=== PATIENT | male | born 1945 | race Caucasian/White ===

== ENCOUNTER 2024-03-29 07:07 | Inpatient (IN) | payer MEDICARE, MEDICAID, SELFPAY ==
[2024-03-29] VITALS (32 sets, daily range): BP systolic 88–150; BP diastolic 68–122; PULSE 78–122; RESP 12–90; TEMP 36.8–38.3; O2SAT 88–100; BMI 33.0; BMI 25.5
--- NOTE | 2024-03-29 07:16 | XR_ITS ---
Examination: AP chest single view TECHNIQUE: AP portable sitting chest single view Exam date and time: March 29, 2024 at 0747 hours Comparison March 09, 2023 INDICATIONS: Hypoxia and shortness of breath today FINDINGS: Diffuse bilateral lung opacity consistent with pneumonia, most prominent in the left lung including left base Normal heart size Ectatic thoracic aorta Prominent osteopenia IMPRESSION: Diffuse bilateral pneumonia, most prominent left lung
--- NOTE | 2024-03-29 07:16 | EKG_ITS ---
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 : 1945 Requested By: Henrique Irene Order Number: [id number] Reading MD: Henrique Irene Measurements Intervals [place] Rate: 108 P: 46 MN: 191 QRS: 52 QRSD: 126 T: -7 QT: 346 QTc: 466 Interpretive Statements SINUS TACHYCARDIA INFERIOR MYOCARDIAL INFARCTION , OF INDETERMINATE AGE [40+ ms Q WAVE AND/OR ST/T ABNORMALITY IN II/aVF] Compared to ECG 11/11/2021 20:36:37 Myocardial infarct finding now present Atrial fibrillation no longer present Ventricular premature complex(es) no longer present Aberrant conduction of supraventricular beat(s) no longer present T-wave abnormality no longer present Possible ischemia no longer present /store/S0/[id number]/ecg/[id number].pdf
[2024-03-29 07:47] LABS: Collection Type, Urine Clean Catch
--- NOTE | 2024-03-29 07:49 | PD.EDSOB ---
ED SOB =RME/HPI General Chief Complaint: Altered Mental Status Stated Complaint: AMS Time Seen by Provider: 03/29/24 07:13 Arrival date/time: 03/29/24 07:07 RME / HPI RME / HPI Narrative: This section includes all my notes and documentations, including HPI, PE, and ED course.? Henrique Sinha MD HPI: 79 year old male with history of CVA, seizures, hypertension, spasmodic torticollis, developmental delay, hypercholesterolemia, osteoporosis presents to the ED BIBA from [facility] half-way for evaluation of altered mental status and low oxygen saturations today. Accompanied by wet cough beginning this morning. Per medics, half-way staff reported at baseline the patient is awake and conversive and this morning is not alert or responding as he normally would. Medics noted oxygen saturations were in the 70's on room and placed on 6L nasal cannula with improvement to 92-93%. Patient at baseline does not use oxygen. No other complaints reported. ROS: All negative except as documented in HPI. Physical Exam: General:? Lethargic. Fever and hypoxia noted. Eyes:? Conjunctivae and lids clear.? ENT:? No nasal congestion.? Neck:? Supple.? Heart:? RRR.? Lungs:? No respiratory distress.? Good air movement.? No rhonchi, wheezing, rales.?? Abdomen:? Soft and nontender.?? Legs:? No clubbing, cyanosis, edema.? Skin:? Warm and dry.?? Neuro:? Lethargic. I reviewed all diagnostic test results. My interpretation of the EKG is?Sinus rhythm (108 bpm) with nonspecific ST-T changes. My interpretation of the chest x-ray is diffuse bilateral pneumonia. My review of the chest CT report is bilateral pneumonia. Blood tests and urine tests?remarkable for D-Dimer 1180, elevated Troponin, CRP 6.2, BNP 473, UTI, and positive Influenza. At this point, diagnoses include?sepsis, influenza, pneumonia, acute respiratory failure with hypoxia, type 2MI, UTI. Treatment here included?IVF, Tylenol, Toradol, Solumedrol, Neb treatment, Tamiflu, and Rocephin. No significant improvement noted. I discussed the case with our cane flume watchman and our hospitalist.? About the presentation and exam and diagnostics and treatments here.? And need of further care in the hospital.? Will accept the patient. Henrique Sinha MD Related Data Home Medications ?Medication ?Instructions ?Recorded ?Confirmed acetaminophen 325 mg tablet 650 mg PO Q4H PRN Fever 09/07/17 11/07/21 benazepril 10 mg tablet 10 mg PO BID 09/07/17 11/07/21 docusate sodium 250 mg capsule 250 mg PO BID 09/07/17 11/07/21 lactulose 10 gram/15 mL (15 mL) 30 ml PO QDAY 09/07/17 11/07/21 oral solution loratadine 10 mg tablet 10 mg PO QDAY 09/07/17 11/07/21 magnesium hydroxide 400 mg/5 mL 30 ml PO QDAY 09/07/17 11/07/21 oral suspension (Milk of Magnesia) multivitamin with minerals 1 tab PO QDAY 09/07/17 11/07/21 potassium chloride 20 mEq 20 meq PO QDAY 09/07/17 11/07/21 tablet,extended release primidone 250 mg tablet 250 mg PO BID 09/07/17 11/07/21 simvastatin 10 mg tablet 10 mg PO QDAY 09/07/17 11/07/21 tamsulosin 0.4 mg capsule 0.4 mg PO DAILY 09/07/17 11/07/21 ipratropium 0.5 mg-albuterol 3 mg 3 ml inhalation Q4HR PRN Congestion 12/01/17 11/07/21 (2.5 mg base)/3 mL nebulization soln aspirin 81 mg tablet,delayed 1 tab PO DAILY 12/11/17 11/07/21 release (Aspir-) cilostazol 50 mg tablet 50 mg PO BID 12/11/17 11/07/21 clopidogrel 75 mg tablet 75 mg PO QDAY 12/11/17 11/07/21 levetiracetam 1,000 mg tablet 1,000 mg PO QDAY 12/11/17 11/07/21 calcium 600 mg (as 1 tab PO QDAY 03/14/18 11/07/21 carbonate)-vitamin D3 10 mcg (400 unit) capsule guaifenesin 400 mg tablet 400 mg PO TID 03/14/18 11/07/21 levetiracetam 500 mg tablet 1,500 mg PO QPM 03/14/18 11/07/21 eslicarbazepine 200 mg tablet 800 mg PO HS 09/09/20 11/07/21 (Aptiom) Previous Rx's ?Medication ?Instructions ?Recorded apixaban 2.5 mg tablet (Eliquis) 5 mg (2 x 2.5 mg) PO BID #120 tabs 11/15/21 metoprolol tartrate 25 mg tablet 12.5 mg (1/2 x 25 mg) PO BID #30 11/15/21 tabs Allergies Allergy/AdvReac Type Severity Reaction Status Date / Time No Known Allergies Allergy Verified 09/09/20 07:57 Course Quality Measures Current suspected stage: sepsis Possible source: pulmonary Blood cultures ordered: completed in ED Antibiotic ordered: Yes Pertinent labs: 03/29/24 03/29/24 07:40 11:04 Lactic Acid 3.6 H mMol/L 1.8 mMol/L (0.4-2.0) (0.4-2.0) Procalcitonin 0.26 ng/ml (0.0-0.49) sepsis Orders Category Date Time Status Bedside COVID-19 Antigen Test NOW Care 03/29/24 07:14 Completed Bedside Influenza A&B Antigen Test NOW Care 03/29/24 07:14 Completed COVID-19 Screening Questionnaire NOW Care 03/29/24 09:[address] Screening NOW Care 03/29/24 07:16 Completed Decision to Admit X1 Care 03/29/24 09:58 Completed EKG (ED ONLY) *Do not use* NOW Care 03/29/24 07:16 Completed Palmer to Leg Bag Routine Care 03/29/24 07:24 Ordered Nasopharyngeal Suction NEEDED Care 03/29/24 07:37 Completed Notify provider NOW Care 03/29/24 09:57 Completed Saline [Insert IV] NOW Care 03/29/24 07:14 Completed Consult to Cardiology Stat Cons 03/29/24 09:32 Ordered EKG (ED Only) Stat Exams 03/29/24 07:16 Draft XR chest 1V portable Stat Exams 03/29/24 07:16 Completed BNP [B-Type Natriuretic Peptide] Stat Lab 03/29/24 07:40 Completed Blood Culture (Lab) Stat Lab 03/29/24 07:40 Completed CBC Stat Lab 03/29/24 07:40 Completed CMP [Comprehensive Metabolic Panel] Stat Lab 03/29/24 07:40 Completed CRP [C-Reactive Protein] Stat Lab 03/29/24 07:40 Completed D-Dimer Stat Lab 03/29/24 07:40 Completed ESR [Sed Rate (ESR)] Stat Lab 03/29/24 07:40 Completed Lactate (Lactic Acid) Stat Lab 03/29/24 07:40 Completed Lactic Acid, 3 HR Stat Lab 03/29/24 11:04 Completed Magnesium Stat Lab 03/29/24 07:40 Completed PT [Prothrombin Time with INR] Stat Lab 03/29/24 09:15 Completed PTT [Partial Thromboplastin Time] Stat Lab 03/29/24 09:15 Completed Procalcitonin Stat Lab 03/29/24 07:40 Completed RSV [Respiratory Syncytial Virus Ag] Stat Lab 03/30/24 00:46 Completed TSH [Thyroid Stimulating Hormone] Stat Lab 03/29/24 07:40 Completed Troponin I Stat Lab 03/29/24 07:40 Completed UA, C/S IF [Urinalysis, C/S if Indicated] Stat Lab 03/29/24 07:25 Completed Urine Culture Stat Lab 03/29/24 07:25 Completed VBG [Venous Blood Gas] Stat Lab 03/29/24 09:15 Completed Acetaminophen Ivpb [Ofirmev Inj] Med 03/29/24 07:24 Discontinued 1,000 mg in 100 ml IV NOW Albuterol/Ipratr Rt Vicky [Duoneb Rt Vicky] Med 03/29/24 07:14 Discontinued 3 ml INH X1 ONE Aspirin Supp Med 03/29/24 08:37 Discontinued 300 mg MI X1 ONE Furosemide Inj [Lasix Inj] Med 03/29/24 07:14 Discontinued 40 mg IVP X1 ONE Heparin Inj Med 03/29/24 09:57 Discontinued 4,000 unit IV X1 ONE Heparin/D5w 25K 250 ML Ivpb [Heparin in D5w Ivpb] Med 03/29/24 10:00 Discontinued 25,000 unit in 250 ml IV 10 units/kg/hr Ketorolac Inj [Toradol Inj] Med 03/29/24 07:24 Discontinued 7.5 mg IVP X1 ONE MethylPREDNISolone.* [SoluMEDROL Inj] Med 03/29/24 07:14 Discontinued 125 mg IVP X1 ONE Morphine Inj Med 03/29/24 07:14 Discontinued 2 mg IVP X1 ONE Nitroglycerin Oint 2% [Nitro-paste Oint 2%] Med 03/29/24 07:14 Discontinued 1 inch TOP X1 ONE Oseltamivir [Tamiflu] Med 03/29/24 07:40 Discontinued 75 mg PO X1 ONE Sodium Chloride 0.9% 1000 ml [Ns] 1,000 ml Med 03/29/24 07:16 Discontinued IV 75 mls/hr cefTRIAXone [Rocephin] 1,000 mg Med 03/29/24 07:14 Discontinued Sodium Chloride 0.9% (P) [Ns 0.9% (P)] 50 ml IV X1 Vital Signs Vital signs: Vital Signs Temperature 100.9 F H 03/29/24 07:10 Pulse Rate 106 H 03/29/24 07:10 Respiratory Rate 22 H 03/29/24 07:10 Blood Pressure 104/82 03/29/24 07:10 Pulse Oximetry (%) 88 L 03/29/24 07:10 Oxygen Delivery Method Room Air 03/29/24 07:10 Shortness of Breath / Dyspnea MDM Narrative MDM Narrative:: Kavitha Acosta am scribing for and in the presence of Dr. Sinha. Patient data External records reviewed:: [facility] previous records (I reviewed admission from 11/06/2021 through 11/15/2021 for pneumonia. ), EMS form and [facility] records (I reviewed pmhx and medication list from the half-way ) Clinical information provided by:: EMS Social determinants that could affect healthcare access:: housing ([facility] resident ) Patient has the following chronic illnesses:: CVA, seizures, hypertension, spasmodic torticollis, developmental delay, hypercholesterolemia, osteoporosis How is presenting disease/condition affected by chronic disease/condition?: exacerbated by Evaluation data The following diagnostics were reviewed and interpreted by me:: lab results, radiology exam(s) and EKG tracing(s) (My interpretation of the EKG is: Sinus rhythm (108 bpm) with nonspecific ST-T changes. Henrique Sinha MD) Lab and/or radiology exams considered but not ordered:: None Interpretation Summary: CXR shows bilateral pneumonia. Medications / Prescriptions Medications or Prescriptions considered but not ordered:: None Medication administrations:: Medication Administration History Discontinued Medications Acetaminophen (Acetaminophen 325 Mg Tablet) 650 mg PO Q6H PRN PRN Reason: Fever >101.5 Stop: 04/28/24 11:48 Acetaminophen (Acetaminophen 325 Mg Tablet) 650 mg PO Q6H PRN PRN Reason: PAIN SCALE 1-3 (mild Stop: 04/28/24 11:48 Albuterol/Ipratropium (Albuterol/Ipratropium (Duoneb) Rt Vicky 3 Ml Nebu) 3 ml INH X1 ONE Stop: 03/29/24 07:15 Last Admin: 03/29/24 08:00 Dose: 3 ml Documented By: MARLENI Albuterol/Ipratropium (Albuterol/Ipratropium (Duoneb) Rt Vicky 3 Ml Nebu) 3 ml INH Q6HRRT [place] Stop: 04/28/24 12:59 Last Admin: 03/30/24 20:05 Dose: Not Given Documented By: CHARLIE Non-Admin Reason: pt Admin: 03/30/24 07:19 Dose: 3 ml Documented By: Admin: 03/30/24 00:03 Dose: 3 ml Documented By: Admin: 03/29/24 18:40 Dose: 3 ml Documented By: Admin: 03/29/24 12:35 Dose: 3 ml Documented By: MARLENI Artificial Tears (Artificial Tears 225 Drop/15 Ml Btl) 1 drop BOTH EYES Q4HR PRN PRN Reason: Dry eyes Stop: 04/29/24 04:15 Aspirin (Aspirin 300 Mg Supp) 300 mg MI X1 ONE Stop: 03/29/24 08:38 Last Admin: 03/29/24 12:20 Dose: 300 mg Documented By: KATE Atorvastatin Calcium (Atorvastatin Calcium 10 Mg Tablet) 5 mg PO QDAY [place]; Protocol Stop: 04/29/24 08:59 Benzonatate (Benzonatate 100 Mg Capsule) 100 mg PO Q8H PRN; Protocol PRN Reason: COUGH Stop: 04/28/24 14:59 Dextrose (Dextrose 50%-Water Inj 50 Ml Syringe) 25 ml IV Q15MIN PRN PRN Reason: BG 50-70 responsive npo pt Stop: 04/28/24 14:47 Dextrose (Dextrose 50%-Water Inj 50 Ml Syringe) 50 ml IV Q15MIN PRN PRN Reason: BG <50 OR BG <70 & pt unresponsive Stop: 04/28/24 14:47 Docusate Sodium (Docusate Sod 100 Mg Capsule) 100 mg PO QDAY [facility]; Protocol Stop: 04/29/24 08:59 Furosemide (Furosemide Inj 10 Mg/Ml 4ml Vial) 40 mg IVP X1 ONE Stop: 03/29/24 07:15 Last Admin: 03/29/24 08:04 Dose: 40 mg Documented By: KATE Furosemide (Furosemide Inj 10 Mg/Ml 4ml Vial) 40 mg IVP X1 ONE Stop: 03/30/24 03:05 Last Admin: 03/30/24 03:41 Dose: 40 mg Documented By: LESLEE Glucagon (Glucagon Inj 1 Mg Vial) 1 mg IM Q15MIN PRN PRN Reason: BG <70, and no IV access Guaifenesin (Guaifenesin Syrup 200 Mg/10 Ml Udc) 400 mg PO TID [place] Stop: 04/28/24 21:59 Last Admin: 03/29/24 23:18 Dose: Not Given Documented By: RAJESH Non-Admin Reason: NPO Heparin Sodium (Porcine) (Heparin Sod Inj 5000 Unit/Ml Vial) 4,000 unit IV X1 ONE; Protocol Stop: 03/29/24 09:58 Last Admin: 03/29/24 12:52 Dose: 4,000 unit Documented By: KATE Co-signed By: MARISOL Ceftriaxone Sodium 1,000 mg/ (Sodium Chloride) 50 mls @ 100 mls/hr IV X1 ONE Stop: 03/29/24 07:43 Last Infusion: 03/29/24 08:55 Dose: Infused Documented By: Admin: 03/29/24 08:20 Dose: 100 mls/hr Documented By: KATE Sodium Chloride (Ns) 1,000 mls @ 75 mls/hr IV .[id number] ONE Stop: 03/29/24 20:35 Last Infusion: 03/29/24 23:18 Dose: Infused Documented By: Admin: 03/29/24 08:20 Dose: 75 mls/hr Documented By: KATE Acetaminophen (Ofirmev Inj) 1,000 mg in 100 mls @ 250 mls/hr IV NOW ONE Stop: 03/29/24 07:47 Last Admin: 03/29/24 07:30 Dose: Not Given Documented By: KATE Non-Admin Reason: Medication Not Available Heparin Sodium/Dextrose (Heparin In D5w Ivpb) 25,000 unit in 250 mls @ 10.433 mls/hr IV .[id number] [facility]; Protocol Stop: 04/12/24 09:59 Last Admin: 03/29/24 13:02 Dose: Not Given Documented By: KATE Non-Admin Reason: Duplicate Medication on eMAR Ceftriaxone Sodium/Dextrose (Rocephin/D5w 1gm Iv Premix) 50 mls @ 100 mls/hr IV 2100 [place] Stop: 04/05/24 20:59 Last Admin: 03/29/24 22:05 Dose: 100 mls/hr Documented By: RAJESH Azithromycin 500 mg/ Sodium (Chloride) 250 mls @ 250 mls/hr IV QDAY [facility] Stop: 04/05/24 11:52 Last Infusion: 03/29/24 13:30 Dose: Infused Documented By: Admin: 03/29/24 12:19 Dose: 250 mls/hr Documented By: KATE Heparin Sodium/Dextrose (Heparin In D5w Ivpb) 25,000 unit in 250 mls @ 10 mls/hr IV .Q24H [facility]; Protocol Stop: 04/12/24 09:59 Last Titration: 03/30/24 03:45 Dose: 7.07 units/kg/hr, 6.382 mls/hr Documented By: LESLEE Co-signed By: YAQUELIN Titration: 03/29/24 19:40 Dose: 9.07 units/kg/hr, 8.187 mls/hr Documented By: RAJESH Co-signed By: ANMOL Admin: 03/29/24 12:54 Dose: 11.078 units/kg/hr, 10 mls/hr Documented By: KATE Co-signed By: MARISOL Morphine Sulfate (Morphine Sulfate Iv Drip 100mg/100ml) 100 mls @ 1 mls/hr IV .Q24H PRN; Protocol PRN Reason: PAIN (COMFORT CARE) Stop: 04/04/24 04:15 Last Admin: 03/30/24 04:40 Dose: 1 mg/hr, 1 mls/hr Documented By: LESLEE Co-signed By: Insulin Human Lispro (Insulin Lispro (Admelog) 1 Unit/0.01 Ml Unit) 0 unit SC AC [facility]; Protocol Stop: 04/28/24 16:59 Last Admin: 03/29/24 17:50 Dose: Not Given Documented By: KATE Non-Admin Reason: Per Protocol Ketorolac Tromethamine (Ketorolac Inj 30 Mg/Ml Vial) 7.5 mg IVP X1 ONE Stop: 03/29/24 07:25 Last Admin: 03/29/24 08:10 Dose: 7.5 mg Documented By: KATE Levalbuterol HCl (Levalbuterol Rt 1.25 Mg/0.5 Ml Nebu) 1.25 mg INH X1 ONE Stop: 03/30/24 02:39 Levetiracetam (Levetiracetam 250 Mg Tablet) 1,500 mg PO QPM [place] Stop: 04/28/24 20:59 Last Admin: 03/29/24 22:24 Dose: Not Given Documented By: RAJESH Non-Admin Reason: Other, see note Comments: does not pass swallow exam Lorazepam (Lorazepam 2 Mg/Ml Vial) 1 mg IVP Q2HR PRN PRN Reason: Agitation Stop: 04/04/24 05:59 Last Admin: 03/30/24 04:34 Dose: 1 mg Documented By: LESLEE Methylprednisolone Sodium Succinate (Methylprednisolone Sod Succ 62.5 Mg/Ml 2ml Vial) 125 mg IVP X1 ONE Stop: 03/29/24 07:15 Last Admin: 03/29/24 08:08 Dose: 125 mg Documented By: KATE Methylprednisolone Sodium Succinate (Methylprednisolone Sod Succ 40 Mg Vial) 40 mg IVP X1 ONE Stop: 03/30/24 03:05 Last Admin: 03/30/24 03:45 Dose: 40 mg Documented By: LESLEE Morphine Sulfate (Morphine Sulf Inj 10 Mg/Ml Vial) 2 mg IVP X1 ONE Stop: 03/29/24 07:15 Last Admin: 03/29/24 08:11 Dose: 2 mg Documented By: KATE Morphine Sulfate (Morphine Sulf Inj 10 Mg/Ml Vial) 2 mg IVP Q2HR [place] Stop: 04/04/24 15:59 Morphine Sulfate (Morphine Sulf Inj 10 Mg/Ml Vial) 2 mg IVP Q30MIN PRN PRN Reason: AGITATION OR PAIN Stop: 04/04/24 14:40 Last Admin: 03/30/24 15:52 Dose: 2 mg Documented By: Admin: 03/30/24 14:53 Dose: 2 mg Documented By: ANGELA Nitroglycerin (Nitroglycerin Oint 2% 1 Inch Packet) 1 inch TOP X1 ONE Stop: 03/29/24 07:15 Last Admin: 03/29/24 08:13 Dose: 1 inch Documented By: KATE Ondansetron HCl (Ondansetron Inj 2 Mg/Ml Inj 2 Ml) 4 mg IV Q6H PRN; Protocol PRN Reason: NAUSEA OR VOMITING Stop: 04/28/24 11:48 Oseltamivir Phosphate (Oseltamivir 75 Mg Capsule) 75 mg PO X1 ONE Stop: 03/29/24 07:41 Last Admin: 03/29/24 12:17 Dose: 75 mg Documented By: KATE Oseltamivir Phosphate (Oseltamivir 75 Mg Capsule) 75 mg PO QDAY [place] Stop: 04/03/24 08:59 Pantoprazole Sodium (Pantoprazole Inj 40 Mg Vial) 40 mg IVP QDAY [place] Stop: 04/29/24 08:59 Primidone (Primidone 50 Mg Tablet) 250 mg PO BID [place] Stop: 04/28/24 20:59 Last Admin: 03/29/24 22:24 Dose: Not Given Documented By: RAJESH Non-Admin Reason: Other, see note Comments: does not pass swallow exam Scopolamine (Scopolamine 1 Mg Tdsy) 1 mg TOP Q3D [place] Stop: 04/29/24 04:29 Last Admin: 03/30/24 15:16 Dose: 1 mg Documented By: JAZZY Sennosides (Senna Tablet) 1 tab PO QDAY [place]; Protocol Stop: 04/29/24 08:59 Sennosides (Senna Tablet) 1 tab PO PRN PRN; Protocol PRN Reason: CONSTIPATION Stop: 04/29/24 04:17 Sodium Chloride (Sodium Chloride Rt Vicky 0.9% 3 Ml Nebu) 3 ml INH PRN PRN PRN Reason: SOLN Stop: 04/29/24 02:37 Tamsulosin HCl (Tamsulosin Hcl 0.4 Mg Capsule) 0.4 mg PO DAILY [facility] Stop: 04/29/24 08:59 Patient given IV fluids, ceftriaxone, nitro, morphine, solumedrol, lasix, duoneb. Consultations Consultation(s) initiated? (list below): Yes Consultation #1 (Physician, Specialty, Details): I spoke with Surgical Resident, will consult. Diagnosis Shortness of Breath Differential Diagnosis: acute exacerbation of chronic obstructive airways disease, congestive heart failure, community acquired pneumonia, asthma with exacerbation and pulmonary embolism Most likely diagnosis given after review of the tests above:: sepsis influenza pneumonia acute respiratory failure with hypoxia type 2MI UTI Admission Indicated Admission indicated?: indicated Explain why admission is indicated or not indicated:: Sepsis and respiratory failure Admission Request Was there a request for admission?: Yes Admission Attestation Admission request attestation: Discussed case with Hospitalist service regarding admission. Discussed patients ED course, exam findings, labs, and radiology results. The Hospitalist [agrees] to accept the patient for admission. Disposition Plan Disposition Plan: Admit Discharge Plan Plan Patient Disposition: Admit Acute Care w/in Hospital Disposition Comment: Problem List Clinical Impression: Sepsis, Influenza, Pneumonia, Acute respiratory failure with hypoxia, Type 2 LA (myocardial infarction), UTI (urinary tract infection) Patient/Caregiver Discharge Instructions Discharge Activity: other
[2024-03-29 07:52] LABS: Lactate (Lactic Acid) 3.6 mMol/L (0.4-2.0)
[2024-03-29] MEDS: ALBUTEROL/IPRATROPIUM (Duoneb) RT SOL 3 ML NEBU INH ×3 (08:00→18:40)
[2024-03-29] MEDS: FUROSEMIDE INJ 10 MG/ML 4ML VIAL 40 MG IVP (08:04)
[2024-03-29 08:05] LABS: Basophils % (Auto) 0 % (0-2.5); Eosinophils % (Auto) 0 % (0-10); Hematocrit 38.7 % (41.0-53.0); Hemoglobin 12.8 g/dL (13.5-16.0); Immature Granulocytes % (Auto) 1 % (0-0); Immature Granulocytes Auto 0.04 Thou/mm3 (0.00-0.00); Lymphocytes # (Auto) 0.4 Thou/mm3 (1.0-4.8); Lymphocytes % (Auto) 5 % (10-50); Mean Corpuscular HGB Conc 33.1 g/dl (31.0-37.0); Mean Corpuscular Volume 91 fL (80-100); Monocytes # (Auto) 1.1 Thou/mm3 (0.0-0.8); Monocytes % (Auto) 15 % (0-12); Neutrophils % (Auto) 79 % (37-80); Nucleated Red Blood Cell % 0 /100 WBC (0); Platelet Count 226 Thou/mm3 (140-440); RDW Standard Deviation 43.5 fL (35.1-43.9); Red Blood Count 4.26 Miln/mm3 (4.50-5.90); White Blood Count 7.6 Thou/mm3 (3.8-10.6)
[2024-03-29] MEDS: MethylPREDNISolone SOD SUCC 62.5 MG/ML 2ML VIAL 125 MG IVP (08:08)
[2024-03-29] MEDS: KETOROLAC INJ 30 MG/ML VIAL 7.5 MG IVP (08:10)
[2024-03-29] MEDS: MORPHINE SULF INJ 10 MG/ML VIAL 2 MG IVP (08:11)
[2024-03-29] MEDS: NITROGLYCERIN OINT 2% 1 INCH PACKET TOP (08:13)
[2024-03-29 08:14] LABS: Sed Rate (ESR) 58 mm/hr (0-20)
[2024-03-29] MEDS: SODIUM CHLORIDE 0.9% 1000 ML 1,000 ML 75 ML IV (08:20)
[2024-03-29] MEDS: cefTRIAXone 1,000 MG in SODIUM CHLORIDE 0.9% (P) 50 ML 100 MG IV (08:20)
[2024-03-29 08:21] LABS: D-Dimer 1180 ng/mL (<600)
[2024-03-29 08:25] LABS: Alanine Aminotransferase 46 U/L (10-49); Albumin, Serum 4.2 gm/dL (3.4-4.8); Albumin/Globulin Ratio 1.2 (1.2-2.2); Alkaline Phosphatase 130 U/L (46-116); Anion Gap 11 (7-16); Aspartate Amino Transferase 112 U/L (0-34); BUN/Creatinine Ratio 21 Ratio (12-20); Bilirubin,Total 0.2 mg/dL (0.3-1.2); Blood Urea Nitrogen 17 mg/dL (9-23); C-Reactive Protein 6.2 mg/dL (0.0-0.9); Calcium 9.7 mg/dL (8.3-10.6); Calcium (Corrected) 9.7 mg/dL (8.5-10.1); Carbon Dioxide 24.6 mMol/L (20.0-31.0); Chloride 98 mMol/L (98-107); Creatinine (Component) 0.8 mg/dL (0.6-1.3); Estimated Creatinine Clearance 87.6 mL/min (>60); Globulin 3.4 gm/dL (2.3-3.5); Glucose 150 mg/dL (74-106); Magnesium 1.9 mg/dL (1.6-2.6); Osmolality,Calculated 272 (275-295); Potassium 4.4 mMol/L (3.4-5.1); Procalcitonin 0.26 ng/ml (0.0-0.49); Sodium 134 mMol/L (136-145); Thyroid Stimulating Hormone 1.51 uIU/mL (0.55-4.78); Total Protein 7.6 gm/dL (5.7-8.2); eGFR > 60 See Note
[2024-03-29 08:27] LABS: Bacteria,Urine Rare; Bilirubin,Urine Negative (Negative); Blood,Urine 1+ (Negative); Color,Urine Yellow (Lt Yel-Yel); Glucose, Urine Negative (Negative); Hyaline Casts,Urine < 1 /hpf (0-1); Ketones,Urine Trace (Negative); Leukocyte Esterase,Urine Positive (Negative); Nitrite,Urine Negative (Negative); Protein,Urine 1+ (Neg - Trace); RBC,Urine 25 /hpf (0-3); Specific Gravity,Urine 1.019 (1.001-1.035); Squamous Epithelial Cell,Urine 4 /hpf (0-5); Urobilinogen,Urine Negative mg/dL (0.0-1.0); WBC,Urine 1786 /hpf (0-5)
[2024-03-29 08:34] LABS: Troponin I 11.531 ng/mL (0.0-0.045)
[2024-03-29 08:50] LABS: B-Type Natriuretic Peptide 473 pg/mL (0-100)
[2024-03-29 09:00] LABS: Clarity,Urine Cloudy (Clear/Hazy); Culture Indicated,Urine Yes
[2024-03-29 09:21] LABS: Base Excess, Venous 1 (-3-3); O2 Saturation, Venous 97 % (96-97); PCO2, Venous 41 mmHg (36-56); PO2, Venous 85 mmHg (15-58)
[2024-03-29 09:50] LABS: INR 1.1 (0.9-1.3); Partial Thromboplastin Time 29.3 Seconds (22.0-36.0); Prothrombin Time 11.8 Seconds (9.0-12.2)
[2024-03-29 10:50] LABS: Reflex Lactate? Y
[2024-03-29 11:10] LABS: Lactic Acid, 3 HR 1.8 mMol/L (0.4-2.0)
[2024-03-29] MEDS: OSELTAMIVIR 75 MG CAPSULE PO (12:17)
[2024-03-29] MEDS: AZITHROMYCIN INJ 500 MG in SODIUM CHLORIDE 0.9% 250 ML 250 ML 250 MG IV (12:19)
[2024-03-29] MEDS: ASPIRIN 300 MG SUPP PR (12:20)
[2024-03-29] MEDS: HEPARIN SOD INJ 5000 UNIT/ML VIAL 4000 UNIT IV (12:52)
[2024-03-29] MEDS: Heparin/D5w 25K 250 ML Ivpb 25,000 UNIT/250 ML BAG 10 UNIT IV (12:54)
[2024-03-29 13:36] LABS: Troponin I 21.615 ng/mL (0.0-0.045)
--- NOTE | 2024-03-29 14:42 | XR_ITS ---
Examination: CTA chest with intravenous contrast 2-D reconstructions 3-D reconstructions, vascular Date and time of exam: March 29, 2024 1717 hours INDICATIONS: Onset chest pain shortness of breath today, elevated d-dimer, clinical diagnosis pulmonary embolus CTDI: vol (mGy) 15.9 DLP: (mGycm) 610 Technique: Multiple axial sections of the thorax have been obtained. 3 mm slice thickness, from below the hemidiaphragms to above the apices of the lungs. Mediastinal and lung density settings have been obtained. 2-D sagittal and coronal reconstructions. 3-D angiographic renderings, 3-D volume renderings, 3D post processing, vascular maximum intensity projections obtained. Contrast administered is 100 cc Isovue-370 intravenous. Low dose protocols were performed. One or more of the following dose reduction techniques were used; automated exposure control, adjustment of the mA and/or KV according to patient size, use of iterative reconstruction technique. Findings: Mediolateral dimension ascending thoracic aorta 4.6 cm Pulmonary artery segments do not appear enlarged No pulmonary artery emboli Mild to moderate enlargement cardiac contour with heavy calcification left main and left anterior descending and left circumflex and right coronary arteries Bilateral diffuse lung opacity consistent with pneumonia, prominent at the left lung base Prominent vascular congestion No visualized liver or splenic lesion Multiple gallstones Moderate osteopenia IMPRESSION: Aneurysmal dilatation ascending thoracic aorta, mediolateral dimension 4.6 cm Negative for pulmonary artery emboli. Bilateral pneumonia, significant left base Mild associated heart failure Cholelithiasis, recommend hepatobiliary sonography to assess the gallbladder wall
--- NOTE | 2024-03-29 14:44 | PD.RESHP ---
Documentation for date of: 03/29/24 HPI History of Present Illness Chief complaint: Fever and malaise History of present illness: Mr. Diane is an 79-year-old male with past medical history of CVA, neck contracture, developmental disability, recurrent UTI, schizophrenia, seizures, hypertension, hyperlipidemia and bedbound who presented to [facility] with a chief complaint of fever and malaise. Patient was at baseline health yesterday evening and this morning when caretakers went to awaken him he was not responding very well and was noted to be weak so they decided to bring him to the emergency department. Patient's roommate has been febrile for the last few days and this patient has been without complaints until this morning. She denied any febrile episodes at home, seizures, complaints of chest pain, complaints of abdominal pain, dysuria, diarrhea, or vomiting. At baseline patient is verbal with repetitive stories and is able to answer yes and no questions. When questioned about any chest pain patient denied any chest pain. PMH: CVA, neck contracture, developmental delay, schizophrenia, seizures, hypertension, hyperlipidemia and bedbound Past surgical history: Unknown Allergies: Unknown Social history: Patient is conserved under the care of [facility], unknown substance abuse history ED vitals: BP 88/68, pulse 106, RR 22, temp febrile, O2 sat 98 on 2 L via nasal cannula ED labs: WBC 7.6, hemoglobin 12.8, ESR 58, D-dimer 1180, sodium 134 glucose 150, AST 112, ALT 46, alk phos 130, initial cardiac troponins 11 with repeat of 21 C-reactive protein 6.2, BNP 473 U/A: Cloudy, 1+ protein, 1+ blood, 25 RBCs, 1786 WBC, Chest x-ray reveals diffuse bilateral pneumonia most prominent in the left lung EKG shows sinus tachycardia with Q waves ED management: DuoNebs, Lasix 40 x 1, Solu-Medrol 125 mg x 1, Toradol 7.5 mg x 1, morphine 2 mg IV push x 1, nitroglycerin topical x 1 Rocephin 1 g x 1, Tamiflu 75 mg p.o. x 1, initiated on heparin drip Cardiology consulted Review of Systems Review of Systems Systems Reviewed: All systems reviewed, normal except as documented Exam Vital Signs Temp Pulse Resp BP Pulse Ox O2 Del Method O2 Flow Rate 98.2 F 93 18 88/68 L 98 Nasal Cannula 2 03/29/24 13:03 03/29/24 13:30 03/29/24 13:03 03/29/24 13:30 03/29/24 13:30 03/29/24 13:03 03/29/24 13:03 Narrative Exam Constitutional: NAD, alert, bedridden, with a neck contracture HEENT:? Normocephalic/Atraumatic, PERRL , no conjunctival injection , symmetrical lids, neck contracture a left-sided deviation CVS: RRR, S1 and S2 present, no murmurs, rubs or gallops . RESP: Bilateral rhonchi heard upon auscultation with significant mucus GI: Normal BS, Nontender/Nondistended. MSK: Full range of motion, No trauma or deformities or masses.? Skin: Warm to touch, Dry. No rashes or lesions. No hematomas Neuro: service trainer II-XII grossly intact. Sensation grossly intact. Psych: (AAO) x3 . Appropriate mood and affect. Results: Labs 03/29/24 07:40 03/29/24 07:40 Labs: Short CBC 03/29/24 Range/Units 07:40 WBC 7.6 (3.8-10.6) Thou/mm3 Hgb 12.8 L (13.5-16.0) g/dL Hct 38.7 L (41.0-53.0) % Plt Count 226 (140-440) Thou/mm3 BMP 03/29/24 07:40 Sodium 134 L Potassium 4.4 Chloride 98 Carbon Dioxide 24.6 BUN 17 Creatinine 0.8 Glucose 150 H Calcium 9.7 Cardiac Enzymes 03/29/24 03/29/24 Range/Units 07:40 12:38 Troponin I 11.531 H* 21.615 H* D (0.0-0.045) ng/mL Liver Function 03/29/24 Range/Units 07:40 Total Bilirubin 0.2 L (0.3-1.2) mg/dL AST 112 H (0-34) U/L ALT 46 (10-49) U/L Alkaline Phosphatase 130 H (46-116) U/L Albumin 4.2 (3.4-4.8) gm/dL Urine 03/29/24 Range/Units 07:25 Urine Color Yellow (Lt Yel-Yel) Urine Clarity Cloudy A (Clear/Hazy) Urine pH 6.0 (5.0-7.0) Ur Specific [place] 1.019 (1.001-1.035) Urine Protein 1+ A (Neg - Trace) Urine Glucose (UA) Negative (Negative) ABG Interpretation ABG results: 03/29/24 09:15 VBG pH 7.40 VBG pCO2 41 VBG pO2 85 H VBG Base Excess 1 Quality Measures Quality Measures sepsis Current suspected stage: sepsis Possible source: pulmonary Blood cultures ordered: completed in ED Antibiotic ordered: Yes Advance care planning discussed with:: legal surragate Medications Home Medications and Allergies Home Medications ?Medication ?Instructions ?Recorded ?Confirmed ?Type acetaminophen 325 mg tablet 650 mg PO Q4H PRN Fever 09/07/17 11/07/21 History benazepril 10 mg tablet 10 mg PO BID 09/07/17 11/07/21 History docusate sodium 250 mg capsule 250 mg PO BID 09/07/17 11/07/21 History lactulose 10 gram/15 mL (15 mL) 30 ml PO QDAY 09/07/17 11/07/21 History oral solution loratadine 10 mg tablet 10 mg PO QDAY 09/07/17 11/07/21 History magnesium hydroxide 400 mg/5 mL 30 ml PO QDAY 09/07/17 11/07/21 History oral suspension (Milk of Magnesia) multivitamin with minerals 1 tab PO QDAY 09/07/17 11/07/21 History potassium chloride 20 mEq 20 meq PO QDAY 09/07/17 11/07/21 History tablet,extended release primidone 250 mg tablet 250 mg PO BID 09/07/17 11/07/21 History simvastatin 10 mg tablet 10 mg PO QDAY 09/07/17 11/07/21 History tamsulosin 0.4 mg capsule 0.4 mg PO DAILY 09/07/17 11/07/21 History ipratropium 0.5 mg-albuterol 3 mg 3 ml inhalation Q4HR PRN Congestion 12/01/17 11/07/21 History (2.5 mg base)/3 mL nebulization soln aspirin 81 mg tablet,delayed 1 tab PO DAILY 12/11/17 11/07/21 History release (Aspir-) cilostazol 50 mg tablet 50 mg PO BID 12/11/17 11/07/21 History clopidogrel 75 mg tablet 75 mg PO QDAY 12/11/17 11/07/21 History levetiracetam 1,000 mg tablet 1,000 mg PO QDAY 12/11/17 11/07/21 History calcium 600 mg (as 1 tab PO QDAY 03/14/18 11/07/21 History carbonate)-vitamin D3 10 mcg (400 unit) capsule guaifenesin 400 mg tablet 400 mg PO TID 03/14/18 11/07/21 History levetiracetam 500 mg tablet 1,500 mg PO QPM 03/14/18 11/07/21 History eslicarbazepine 200 mg tablet 800 mg PO HS 09/09/20 11/07/21 History (Aptiom) Allergies Allergy/AdvReac Type Severity Reaction Status Date / Time No Known Allergies Allergy Verified 09/09/20 07:57 Visit Medications Acetaminophen (Acetaminophen 325 Mg Tablet) 650 mg PO Q6H PRN PRN Reason: Fever >101.5 Stop: 04/28/24 11:48 Acetaminophen (Acetaminophen 325 Mg Tablet) 650 mg PO Q6H PRN PRN Reason: PAIN SCALE 1-3 (mild Stop: 04/28/24 11:48 Albuterol/Ipratropium (Albuterol/Ipratropium (Duoneb) Rt Vicky 3 Ml Nebu) 3 ml INH Q6HRRT [facility] Stop: 04/28/24 12:59 Last Admin: 03/29/24 12:35 Dose: 3 ml Docusate Sodium (Docusate Sod 100 Mg Capsule) 100 mg PO QDAY [facility]; Protocol Stop: 04/29/24 08:59 Sodium Chloride (Ns) 1,000 mls @ 75 mls/hr IV .[id number] ONE Stop: 03/29/24 20:35 Last Admin: 03/29/24 08:20 Dose: 75 mls/hr Ceftriaxone Sodium/Dextrose (Rocephin/D5w 1gm Iv Premix) 50 mls @ 100 mls/hr IV 2100 [place] Stop: 04/05/24 20:59 Azithromycin 500 mg/ Sodium (Chloride) 250 mls @ 250 mls/hr IV QDAY [place] Stop: 04/05/24 11:52 Last Infusion: 03/29/24 13:30 Dose: Infused Heparin Sodium/Dextrose (Heparin In D5w Ivpb) 25,000 unit in 250 mls @ 10 mls/hr IV .Q24H [place]; Protocol Stop: 04/12/24 09:59 Last Admin: 03/29/24 12:54 Dose: 11.078 units/kg/hr, 10 mls/hr Ondansetron HCl (Ondansetron Inj 2 Mg/Ml Inj 2 Ml) 4 mg IV Q6H PRN; Protocol PRN Reason: NAUSEA OR VOMITING Stop: 04/28/24 11:48 Oseltamivir Phosphate (Oseltamivir 75 Mg Capsule) 75 mg PO QDAY [facility] Stop: 04/03/24 08:59 Pantoprazole Sodium (Pantoprazole Inj 40 Mg Vial) 40 mg IVP QDAY [facility] Stop: 04/29/24 08:59 Sennosides (Senna Tablet) 1 tab PO QDAY [facility]; Protocol Stop: 04/29/24 08:59 Discontinued Medications Albuterol/Ipratropium (Albuterol/Ipratropium (Duoneb) Rt Vicky 3 Ml Nebu) 3 ml INH X1 ONE Stop: 03/29/24 07:15 Last Admin: 03/29/24 08:00 Dose: 3 ml Aspirin (Aspirin 300 Mg Supp) 300 mg SD X1 ONE Stop: 03/29/24 08:38 Last Admin: 03/29/24 12:20 Dose: 300 mg Furosemide (Furosemide Inj 10 Mg/Ml 4ml Vial) 40 mg IVP X1 ONE Stop: 03/29/24 07:15 Last Admin: 03/29/24 08:04 Dose: 40 mg Heparin Sodium (Porcine) (Heparin Sod Inj 5000 Unit/Ml Vial) 4,000 unit IV X1 ONE; Protocol Stop: 03/29/24 09:58 Last Admin: 03/29/24 12:52 Dose: 4,000 unit Ceftriaxone Sodium 1,000 mg/ (Sodium Chloride) 50 mls @ 100 mls/hr IV X1 ONE Stop: 03/29/24 07:43 Last Infusion: 03/29/24 08:55 Dose: Infused Acetaminophen (Ofirmev Inj) 1,000 mg in 100 mls @ 250 mls/hr IV NOW ONE Stop: 03/29/24 07:47 Last Admin: 03/29/24 07:30 Dose: Not Given Heparin Sodium/Dextrose (Heparin In D5w Ivpb) 25,000 unit in 250 mls @ 10.433 mls/hr IV .[id number] [facility]; Protocol Stop: 04/12/24 09:59 Last Admin: 03/29/24 13:02 Dose: Not Given Ketorolac Tromethamine (Ketorolac Inj 30 Mg/Ml Vial) 7.5 mg IVP X1 ONE Stop: 03/29/24 07:25 Last Admin: 03/29/24 08:10 Dose: 7.5 mg Methylprednisolone Sodium Succinate (Methylprednisolone Sod Succ 62.5 Mg/Ml 2ml Vial) 125 mg IVP X1 ONE Stop: 03/29/24 07:15 Last Admin: 03/29/24 08:08 Dose: 125 mg Morphine Sulfate (Morphine Sulf Inj 10 Mg/Ml Vial) 2 mg IVP X1 ONE Stop: 03/29/24 07:15 Last Admin: 03/29/24 08:11 Dose: 2 mg Nitroglycerin (Nitroglycerin Oint 2% 1 Inch Packet) 1 inch TOP X1 ONE Stop: 03/29/24 07:15 Last Admin: 03/29/24 08:13 Dose: 1 inch Oseltamivir Phosphate (Oseltamivir 75 Mg Capsule) 75 mg PO X1 ONE Stop: 03/29/24 07:41 Last Admin: 03/29/24 12:17 Dose: 75 mg Assessment & Plan Plan Mr. Diane is an 79-year-old male with past medical history of CVA, neck contracture, developmental disability, recurrent UTI, schizophrenia, seizures, hypertension, hyperlipidemia and bedbound who presented to [facility] with a chief complaint of fever and malaise. Patient was at baseline health yesterday evening and this morning when caretakers went to awaken him he was not responding very well and was noted to be weak so they decided to bring him to the emergency department. Patient's roommate has been febrile for the last few days and this patient has been without complaints until this morning. She denied any febrile episodes at home, seizures, complaints of chest pain, complaints of abdominal pain, dysuria, diarrhea, or vomiting. At baseline patient is verbal with repetitive stories and is able to answer yes and no questions. When questioned about any chest pain patient denied any chest pain. #Sepsis secondary to community-acquired pneumonia and UTI #Influenza A #Acute hypoxic respiratory failure secondary to community-acquired pneumonia Patient noted to have tachycardia, fever, hypotension with a source of bilateral pneumonia Tylenol for fever and Zofran for nausea IV Rocephin 1 g daily and azithromycin 500 daily for community-acquired pneumonia and urinary tract infection Continue patient's Flomax Continue with Tamiflu 75 mg p.o. daily for 5 days Lactic acid remains normal Chest physiotherapy ordered, guaifenesin for cough, Kadeem Simon Recommended removal of nitroglycerin patch to improve patient's hypotension #Type II NSTEMI #Elevated troponins #CHF exacerbation Initial troponins around 11 with follow-up at 21 Continue to trend until patient begins to downtrend EKG reveals pathologic Q waves but currently patient is asymptomatic from chest pain Cardiology following, appreciate recommendations Currently patient is receiving heparin drip Elevated BNP of 473 Continue simvastatin 10 mg p.o. daily Furosemide 40 mg IV push x 1 Aspirin 300 mg x 1 #History of seizures Keppra 1500 mg twice daily Primidone 250 mg p.o. twice daily Seizure precautions #BPH Tamsulosin 0.4 mg p.o. daily continue Palmer's catheter in place #History of A-fib #History of CVA Metoprolol tartrate 12.5 mg twice daily Eliquis 5 mg p.o. twice daily Currently patient is on heparin drip and hypotensive, will resume once appropriate Resume aspirin 81 mg p.o. daily and clopidogrel 75 mg p.o. daily #History of hypertension Benazepril 10 mg p.o. twice daily Hold in the setting of hypotension. #Developmental disability #Neck contracture ?Patient is bedridden ?Fall risk precautions Health Maintenance: DVT prophylaxis: Heparin drip GI prophylaxis: Protonix 40 IV daily Diet: Cardiac diet dysphagia type II with 1500 fluid restriction Palmer: Ordered Lines: Peripheral IVs Supplemental O2: None CODE STATUS: Full code, Patient is conserved. Follow-up with Dr. Tijerina in the event of life-saving emergency or interventions Disposition: Admitted to med/tele for the management of acute hypoxic respiratory failure secondary to community-acquired pneumonia and flu versus sepsis secondary to urinary tract infection, type II demand ischemia Plan of care discussed with supervising attending Dr. Ashish Bowie M.D. PGY-3 Attending Provider Attestation/Addendum Alejandrina Acosta DO, attest that I was physically present for the chowdhury portions of the service and evaluated the patient with the resident and I reviewed and discussed the case with the resident and agree with the resident's findings and plans of care as documented above Patient is an 79-year-old male with past medical history of developmental delay, torticollis, recurrent UTI, schizophrenia, seizures, hypertension, hyperlipidemia who was brought to ED from detention for fever and generalized weakness. Patient was noted to be less responsive this morning and was subsequently brought to ED. Patient noted to have scattered rhonchi and thick purulent sputum requiring frequent suctioning. Patient is unable to provide history. However, he denies any chest pain, shortness of breath, abdominal pain. Patient was noted to have a Tmax of 100.9 and tachycardia Upon presentation to ED. Chest x-ray shows diffuse bilateral pneumonia more prominent on left lung. Patient's history is pertinent for recent sick contacts. Labs were significant for troponin of 11.531 and BNP of 473, UA was significant for pyuria with 1786 white blood cell. Cardio called regarding elevated troponin, suspect type II demand ischemia. Will start patient on heparin drip. No ST or T wave changes noted on EKG. Will admit patient to telemetry for further workup medical management of sepsis secondary to pneumonia and UTI, as well as NSTEMI. Will start on broad-spectrum IV antibiotics and tamiflu as patient teste positive for influenza A. Will give gentle IV fluids due to sepsis. Patient will need frequent suctioning, mucolytics and chest PT.
--- NOTE | 2024-03-29 15:11 | PC.CC ---
Pt Rosalio Diane is an 79 yr old male admitted to hospitalist services for sepsis 2/2 to CAP and UTI, Influenza A, Acute hypoxic respiratory failure 2/2 to PNA. [id number] spoke with pts shelter care provider Ilene Hilario [phone] of [facility]. Per Ilene pt is conserved by [facility], who is pts main medical decision maker. At baseline pt is bed bound with assist to wheel chair, non-ambulatory. Pt is max assist with ADLs. Pt does not require supplemental O2. Pt is not diabetic and is not on dialysis. Pt is followed by [facility] for primary care. Plan is for pt to return to [facility]. Per Ilene, if pt is D/c prior to 1600 on date of D/c shelter staff will be able to transport. After 1600 and pt will require transport. Per Ilene if pt is requiring to return back to facility with O2, staff will need to be informed, due to licensing and to request accommodations.
[2024-03-29 19:14] LABS: Troponin I 36.305 ng/mL (0.0-0.045)
[2024-03-29] MEDS: cefTRIAXone/D5w 1gm IV premix 50 ML IV (22:05)
--- NOTE | 2024-03-29 22:28 | PC.NURSE ---
pts respirations sound gurgled. Notified RT who will see pt.
--- NOTE | 2024-03-29 23:14 | PC.RT ---
RT had attempted to NT suction pt, but kept getting resistence on both nares. Unable to perform NT suction successfully. RNLouie, made aware.
[2024-03-30] VITALS (13 sets, daily range): BP systolic 95–120; BP diastolic 66–100; PULSE 82–128; RESP 18–43; TEMP 36.4–36.9; O2SAT 84–97; BMI 25.0
[2024-03-30] MEDS: ALBUTEROL/IPRATROPIUM (Duoneb) RT SOL 3 ML NEBU INH ×2 (00:03→07:19)
[2024-03-30 01:23] LABS: Troponin I 23.986 ng/mL (0.0-0.045)
[2024-03-30 01:52] LABS: Base Excess 0 (-3-3); HCO3 26 mEq/L (20-26); O2 Saturation 88 % (91-98); PCO2 48 mmHg (32.0-48.0); pH, Arterial 7.34 (7.35-7.45)
[2024-03-30 01:53] LABS: Allen Test Not Performed; Inspired Oxygen, FIO2 100 %; Puncture Site Left Radial
[2024-03-30 01:54] LABS: PO2 59 mmHg (83-108)
--- NOTE | 2024-03-30 02:04 | EKG_ITS ---
[facility] Test Date: 2024-03-30 Pat Name: MECHE GAONA [facility] Gender: Male Electronic Induction Hardener: NINOSKA : 1945 Requested By: Alexander Myles Order Number: [id number] Reading MD: Alexander Myles Measurements Intervals [place] Rate: 115 P: 42 OR: 174 QRS: 29 QRSD: 122 T: -77 QT: 314 QTc: 435 Interpretive Statements SINUS TACHYCARDIA WITH OCCASIONAL VENTRICULAR PREMATURE COMPLEXES WITH FREQUENT SUPRAVENTRICULAR PREMATURE COMPLEXES MODERATE INTRAVENTRICULAR CONDUCTION DELAY ST DEVIATION AND MODERATE T-WAVE ABNORMALITY, CONSIDER ANTEROLATERAL ISCHEMIA ST DEVIATION AND MODERATE T-WAVE ABNORMALITY, CONSIDER INFERIOR ISCHEMIA Compared to ECG 03/29/2024 07:44:41 Ventricular premature complex(es) now present Intraventricular conduction delay now present T-wave abnormality now present Possible ischemia now present Myocardial infarct finding no longer present /store/S0/[id number]/ecg/[id number].pdf
--- NOTE | 2024-03-30 02:04 | XR_ITS ---
Examination: AP chest single view FINDINGS: AP portable upright chest single view Examination type: March 30, 2024 0216 hours Comparison March 29, 2024 INDICATION: Shortness of breath today. FINDINGS: Bilateral pneumonia, significant at the lung bases Minor prominence left ventricle Ectatic thoracic aorta Air distended bowel beneath the hemidiaphragms Prominent osteopenia IMPRESSION: Significant bilateral pneumonia
[2024-03-30 02:28] LABS: Respiratory Syncytial Virus Ag Negative (Negative)
[2024-03-30 02:42] LABS: Lactate (Lactic Acid) 2.6 mMol/L (0.4-2.0)
--- NOTE | 2024-03-30 03:38 | ESCONSULT_ITS ---
RE: MECHE GAONA : 1945 DATE OF CONSULTATION: 03/29/2024 CONSULTING PHYSICIANS: Hospitalist and team, and emergency room physician. REASON FOR CONSULTATION: Evaluation of shortness of breath, hypoxic respiratory failure, and troponin elevation. HISTORY OF PRESENT ILLNESS: The patient is an 79-year-old male with a past medical history of longstanding history of past medical history of stroke, neck contracture developed, disability, recurrent admission to the hospital, UTI, urosepsis, schizophrenia, seizures, bedbound, hypertensive diabetes, admitted to the hospital with shortness of breath, apparently not doing well and multiple medical problems, but not having any chest pain, mainly with altered mental status, with hypoxic respiratory failure. The patient is also having fever and malaise, definite urinary tract infection with pyuria. Started on antibiotic therapy with initial admission mostly sepsis secondary to community-acquired pneumonia, urinary tract infection, sepsis; however, incidentally, the patient had troponin elevation significant, initially was 11 and up to 21. EKG showed Q waves but no ST elevation or depression. BMP was slightly elevated at 473. The patient was given a dose of Lasix in the emergency room. The patient does not offer any complaints of chest pain or shortness of breath. At this time, no cardiac symptoms. EKG definitely showed no evidence of acute changes. Based on his overall medical condition, he is a poor candidate for cardiac intervention. ALLERGIES: NONE. MEDICATIONS: I reviewed the medications from home that include multiple medications. Please see the list and benazepril 10 mg daily, lactulose, loratadine, simvastatin, tamsulosin, aspirin, and also take Keppra 1500 mg in the evening and Plavix 75 mg daily. PAST MEDICAL HISTORY: As discussed earlier, multiple medical problems including hypertension, seizure disorder, contracture of the neck, previous possible strokes, recurrent hospitalizations for seizures, and altered mental status in the past. PHYSICAL EXAMINATION: GENERAL: Acutely ill chronically ill male, alert, awake, not in any acute distress. HEAD: Head is atraumatic. It is deviated to the left side, contracture. NECK: Supple. LUNGS: Decreased breath sounds. HEART: S1, S2, regular, tachycardia. ABDOMEN: Slightly thin and soft. EXTREMITIES: Chronic edema of both lower extremities with some deformities. GENITOURINARY AND RECTAL: Not performed. MILL CONTROLLER: The patient is able to communicate but not very well. Detailed neurologic exam is not possible. LABORATORY DATA: Showed slight troponin elevation initially, but subsequent troponin has gone up significantly elevated up to 21 and also up to 36, now suggestive of acute myocardial infarction. EKG continues to not show any significant findings other than nonspecific ST depressions and IVCD as well as there is possible Q-waves in the inferior leads. IMPRESSION: 1. Acute non-ST segment elevation myocardial infarction, significant troponin elevation. 2. Sepsis. 3. History of seizure disorder. 4. Contracture. 5. Hypertension. 6. Hypercholesterolemia. RECOMMENDATIONS: Continue antibiotic therapy, IV Lasix for congestive heart failure. We will get a cardiac echo for assessment of her LV function and wall motion abnormalities. Currently, medical management is recommended. The patient is not a good candidate for angiogram. Because of acute myocardial infarction, treated with aspirin and heparin for now, and we will monitor the patient's cardiac status closely. Review cardiac echo upon completion. DT: 00:16:23 TT: 03:37:00 Ref: [id number] - TID: [id number]
[2024-03-30] MEDS: FUROSEMIDE INJ 10 MG/ML 4ML VIAL 40 MG IVP (03:41)
--- NOTE | 2024-03-30 04:24 | PD.RESEVENT ---
Documentation for date of: 03/30/24 Event Note Event Note: IMMIGRATION LAWYER was called for worsening respiratory distress around 04:05AM. Patient was already on HFNC 40L/100% FiO2, with 15L oxymask on top and patient continued to desaturate in the 80s. Remainder of VS significant for tachycardia, tachypneia, and BP wnl. Initial plan was to try BiPAP and transfer patient to ICU due to concern for possible intubation. Case was discussed with conservator, Dr. Tijerina, who advised against intubation and resuscitation and recommended comfort measures at this time. Patient's CODE STATUS was changed to DNR/DNI and he was placed on comfort measures. Patient's care and plan discussed with my attending. Dr. Torres and senior resident, Dr. Green, PGY-3 Cat Hernandez, PGY-2
[2024-03-30] MEDS: LORazepam 2 MG/ML VIAL 1 MG IVP (04:34)
[2024-03-30] MEDS: Morphine IV Drip 100mg/100ml 100 ML IV (04:40)
[2024-03-30 05:39] LABS: Reflex Lactate? Y
--- NOTE | 2024-03-30 07:10 | PC.NURSE ---
notified Jeri Hilario Point of contact pt. is now comfort care by ,stated she will be here .
--- NOTE | 2024-03-30 07:14 | PC.NURSE ---
0118- Pt brought up to floor from ER on O2 Via mask at 15 L with RT, RT set pt up with HIflow at 40L, 100%, Pt O2 sats max of 88%, HR- tachy, RR- 30-40s RT notified MD and order for ABG stat recieved, MD Dr Myles up to see patient and evaluate, MD to consult with ICU MD. Orders recieved for Lasix and solumedrol. RT placed oxy mask on top of hiflow for mouth breathing, pt sat up to 90-93%
--- NOTE | 2024-03-30 14:07 | ESPR_ITS ---
Documentation for date of: 03/30/24 Subjective Subjective Interval history: Patient is evaluated the bedside, overnight patient had increasing oxygen requirements from high flow nasal cannula, possible intubation and mechanical ventilation was considered as patient was full code, overnight team reached out to patient's conservator Dr. Tijerina at 4 AM, who has been aware of the patient since our discussion yesterday and stated that at this point it is reasonable to pursue comfort care measures instead of subjecting the patient to more intensive and aggressive therapy. Patient was started on comfort care measures, IV morphine drip was initiated. Aggressive medical management discontinued, comfort focused care orders are placed Exam Vital Signs Temp Pulse Resp BP Pulse Ox O2 Del Method O2 Flow Rate 98.5 F 102 H 18 110/66 93 L High Flow Nasal Cannula 5 03/30/24 12:00 03/30/24 12:00 03/30/24 12:00 03/30/24 12:00 03/30/24 12:00 03/30/24 12:03/30/24 12:00 FiO2 100 03/30/24 12:00 Narrative Exam Constitutional: NAD, alert, bedridden, with a neck contracture HEENT:? Normocephalic/Atraumatic, PERRL , no conjunctival injection , symmetrical lids, neck contracture a left-sided deviation CVS: RRR, S1 and S2 present, no murmurs, rubs or gallops . RESP: Bilateral rhonchi heard upon auscultation with significant mucus GI: Normal BS, Nontender/Nondistended. MSK: Full range of motion, No trauma or deformities or masses.? Skin: Warm to touch, Dry. No rashes or lesions. No hematomas Neuro: veneer jointer II-XII grossly intact. Sensation grossly intact. Psych: (AAO) x3 . Appropriate mood and affect. Objective Labs 03/29/24 07:40 03/29/24 07:40 Labs: Laboratory Results - last 24 hr 03/29/24 03/30/24 03/30/24 18:28 00:37 00:46 WBC RBC Hgb Hct MCV MCH MCHC RDW Std Deviation Plt Count Neut % (Auto) Lymph % (Auto) [place] % (Auto) Eos % (Auto) Baso % (Auto) Neut # (Auto) Lymph # (Auto) [place] # (Auto) Eos # (Auto) Baso # (Auto) Immature Gran # (Auto) Absolute Nucleated RBC Immature Gran % Nucleated RBC % APTT 83.0 H D Puncture Site ABG pH ABG pCO2 ABG pO2 ABG HCO3 ABG O2 Saturation ABG Base Excess FiO2 Sodium Potassium Chloride Carbon Dioxide Anion Gap BUN Creatinine Estim Creat Clear Calc eGFR BUN/Creatinine Ratio Glucose Estimated Ave Glu mg/dL Hemoglobin A1c Calculated Osmolality Lactic Acid Calcium Corrected Calcium Phosphorus Magnesium Total Bilirubin AST ALT Alkaline Phosphatase Troponin I 36.305 H* D 23.986 H* D Total Protein Albumin Globulin Albumin/Globulin Ratio Triglycerides Cholesterol LDL Cholesterol, Calc HDL Cholesterol Cholesterol/HDL Ratio TSH RSV Rapid Negative 03/30/24 03/30/24 03/30/24 01:43 02:24 07:20 WBC Cancelled RBC Cancelled Hgb Cancelled Hct Cancelled MCV Cancelled MCH Cancelled MCHC Cancelled RDW Std Deviation Cancelled Plt Count Cancelled Neut % (Auto) Cancelled Lymph % (Auto) Cancelled [place] % (Auto) Cancelled Eos % (Auto) Cancelled Baso % (Auto) Cancelled Neut # (Auto) Cancelled Lymph # (Auto) Cancelled [place] # (Auto) Cancelled Eos # (Auto) Cancelled Baso # (Auto) Cancelled Immature Gran # (Auto) Cancelled Absolute Nucleated RBC Cancelled Immature Gran % Cancelled Nucleated RBC % Cancelled APTT 80.0 H Puncture Site Left Radial ABG pH 7.34 L ABG pCO2 48 ABG pO2 59 L* ABG HCO3 26 ABG O2 Saturation 88 L ABG Base Excess 0 FiO2 100 Sodium Cancelled Potassium Cancelled Chloride Cancelled Carbon Dioxide Cancelled Anion Gap Cancelled BUN Cancelled Creatinine Cancelled Estim Creat Clear Calc Cancelled eGFR Cancelled BUN/Creatinine Ratio Cancelled Glucose Cancelled Estimated Ave Glu mg/dL Cancelled Hemoglobin A1c Cancelled Calculated Osmolality Cancelled Lactic Acid 2.6 H 2.0 Calcium Cancelled Corrected Calcium Cancelled Phosphorus Cancelled Magnesium Cancelled Total Bilirubin Cancelled AST Cancelled ALT Cancelled Alkaline Phosphatase Cancelled Troponin I Total Protein Cancelled Albumin Cancelled Globulin Cancelled Albumin/Globulin Ratio Cancelled Triglycerides Cancelled Cholesterol Cancelled LDL Cholesterol, Calc Cancelled HDL Cholesterol Cancelled Cholesterol/HDL Ratio Cancelled TSH Cancelled RSV Rapid ABG Interpretation ABG results: 03/29/24 03/30/24 09:15 01:43 ABG pH 7.34 L ABG pCO2 48 ABG pO2 59 L* ABG HCO3 26 ABG O2 Saturation 88 L ABG Base Excess 0 VBG pH 7.40 VBG pCO2 41 VBG pO2 85 H VBG Base Excess 1 Quality Measures Quality Measures sepsis Current suspected stage: sepsis Possible source: pulmonary Blood cultures ordered: completed in ED Antibiotic ordered: Yes Advance care planning discussed with:: patient Assessment & Plan Assessment Current Active Medications: Generic Name Dose Route Start Last Admin Trade Name Freq PRN Reason Stop Dose Admin Acetaminophen 650 mg 03/29/24 11:49 Acetaminophen 325 Mg Tablet PO 04/28/24 11:48 Q6H PRN Fever >101.5 Acetaminophen 650 mg 03/29/24 11:49 Acetaminophen 325 Mg Tablet PO 04/28/24 11:48 Q6H PRN PAIN SCALE 1-3 (mild Albuterol/Ipratropium 3 ml 03/29/24 13:00 03/30/24 07:19 Albuterol/Ipratropium (Duoneb) Rt Vicky 3 Ml Nebu INH 04/28/24 12:59 3 ml Q6HRRT [place] Administration Artificial Tears 1 drop 03/30/24 04:16 Artificial Tears 225 Drop/15 Ml Btl BOTH EYES 04/29/24 04:15 Q4HR PRN Dry eyes Morphine Sulfate 100 mls @ 1 mls/hr 03/30/24 04:16 03/30/24 04:40 Morphine Sulfate Iv Drip 100mg/100ml IV 04/04/24 04:15 1 mg/hr .Q24H PRN 1 mls/hr PAIN (COMFORT CARE) Administration Protocol 1 MG/HR Lorazepam 1 mg 03/30/24 04:16 03/30/24 04:34 Lorazepam 2 Mg/Ml Vial IVP 04/04/24 05:59 1 mg Q2HR PRN Administration Agitation Morphine Sulfate 2 mg 03/30/24 16:00 Morphine Sulf Inj 10 Mg/Ml Vial IVP 04/04/24 15:59 Q2HR [place] Ondansetron HCl 4 mg 03/29/24 11:49 Ondansetron Inj 2 Mg/Ml Inj 2 Ml IV 04/28/24 11:48 Q6H PRN NAUSEA OR VOMITING Protocol Scopolamine 1 mg 03/30/24 04:30 Scopolamine 1 Mg Tdsy TOP 04/29/24 04:29 Q3D [place] Sennosides 1 tab 03/30/24 04:20 Senna Tablet PO 04/29/24 04:17 PRN PRN CONSTIPATION Protocol Sodium Chloride 3 ml 03/30/24 02:38 Sodium Chloride Rt Vicky 0.9% 3 Ml Nebu INH 04/29/24 02:37 PRN PRN SOLN Plan Mr. Diane is an 79-year-old male with past medical history of CVA, neck contracture, developmental disability, recurrent UTI, schizophrenia, seizures, hypertension, hyperlipidemia and bedbound who presented to [facility] with a chief complaint of fever and malaise. Patient was at baseline health yesterday evening and this morning when caretakers went to awaken him he was not responding very well and was noted to be weak so they decided to bring him to the emergency department. Patient's roommate has been febrile for the last few days and this patient has been without complaints until this morning. She denied any febrile episodes at home, seizures, complaints of chest pain, complaints of abdominal pain, dysuria, diarrhea, or vomiting. At baseline patient is verbal with repetitive stories and is able to answer yes and no questions. When questioned about any chest pain patient denied any chest pain. #Sepsis secondary to community-acquired pneumonia and UTI #Influenza A #Acute hypoxic respiratory failure secondary to community-acquired pneumonia #Type II NSTEMI #Elevated troponins #CHF exacerbation #History of seizures #BPH #History of A-fib #History of CVA #History of hypertension #Developmental disability #Neck contracture - Patient is evaluated the bedside, overnight patient had increasing oxygen requirements from high flow nasal cannula, possible intubation and mechanical ventilation was considered as patient was full code, overnight team reached out to patient's conservator Dr. Tijerina at 4 AM, who has been aware of the patient since our discussion yesterday and stated that at this point it is reasonable to pursue comfort care measures instead of subjecting the patient to more intensive and aggressive therapy. Patient was started on comfort care measures, IV morphine drip was initiated. Aggressive medical management discontinued, comfort focused care orders are placed Health Maintenance: Diet: NPO [place]: Ordered Lines: Peripheral IVs Supplemental O2: None CODE STATUS: DNR/DNI , comfort measures Disposition: Comfort care measures are intitated. see note above in subjective. Assessment and plan discussed with my attending physician Dr. Angella Godoy (PGY-2)- Internal medicine resident Attending Provider Attestation/Addendum 79-year-old male patient with congestive heart failure, CVA, atrial fibrillation, developmental disability, neck contracture, seizures was admitted for sepsis secondary to pneumonia and UTI Patient also tested positive for influenza. The patient developed worsening respiratory status overnight requiring high flow nasal cannula oxygen and possible intubation. Patient is conservator Dr. Tijerina was contacted. The patient is currently comfort measures per housestaff. He is DNR/DNI.
[2024-03-30] MEDS: MORPHINE SULF INJ 10 MG/ML VIAL 2 MG IVP ×2 (14:53→15:52)
[2024-03-30] MEDS: SCOPOLAMINE 1 MG TDSY TOP (15:16)
--- NOTE | 2024-03-30 16:29 | DES_ITS ---
Documentation for date of: 03/30/24 Pronouncement Note Date and Time of Date of : 03/30/24 Time of : 04:38 (PM) PCOD Preliminary cause of : Cardiopulmonary arrest Summary Additional details: Received call from patient's RN Brie, patient had no breath sounds or cardiac sounds on auscultation, pupils were fixed and dilated, positive doll's eyes/oculocephalic reflex. RN from [facility] was present at the bedside, condolences were offered. Patient was declared at 4:38 PM. Additional Data Confirmation of : no pulse, no respirations, no heart sounds, pupils fixed and dilated and other Family: not available Additional persons at bedside: other (RN from [facility]) Attending/PCP notified?: Yes Attending physician: MD Angella Was code activated?: No Autopsy requested?: No waste examiner notified?: No Organ bank notified?: No Advance directives: No
--- NOTE | 2024-03-30 16:30 | DES_ITS ---
Documentation for date of: 03/30/24 Summary Date and Time Date of admission: 03/29/24 11:49 Date of : 03/30/24 Time of : 16:38 Summary Details: Received call from patient's RN Brie, patient had no breath sounds or cardiac sounds on auscultation, pupils were fixed and dilated, positive doll's eyes/oculocephalic reflex. RN from [facility] was present at the bedside, condolences were offered. Patient was declared at 4:38 PM. Hospital Course: Mr. Diane was an 79-year-old male with a past medical history of CVA, neck contractures, developmental disability, recurrent UTI, schizophrenia, seizure disorder, hyperlipidemia and hypertension bedbound status who presented to [facility] with chief complaint of fever and malaise. Patient denied having active chest pain but troponins were elevated, continued to uptrend. Patient was admitted with diagnosis of NSTEMI and sepsis. Cardiology was consulted, per visual arts teacher Dr. Tru Sotelo given patient's baseline functional status and comorbidities he would recommend noninvasive treatment at this point. The patient was conserved by Dr. Tijerina, we spoke to Dr. Tijerina about CODE STATUS and intervention. Per Dr. Tijerina, it was reasonable to hold off on aggressive intervention and continue with medical management. The patient became more hypoxic overnight, requiring increasing amounts of oxygen, with possible intubation and mechanical ventilation. Night team reached out to conservator Dr. Tijerina who stated the patient will be DNR/DNI and recommended comfort care measures. Patient was started on morphine drip and comfort care measures were initiated. Patient eventually peacefully in his bed on 03/30/2024 4:38 PM. #Acute non-ST elevation myocardial infarction #Sepsis #Seizure disorder #Contracture # Hypertension-hypoxic Case was discussed with my attending Dr. Perales Additional Data Confirmation of as documented by pronouncing clinician: no pulse, no respirations, no heart sounds, pupils fixed and dilated and other Family: at bedside, contacted, attempt made and not available Additional persons at bedside: other (RN) Attending/PCP notified?: Yes Attending physician: Alejandrina Hinojosa, DO Was code activated?: No Autopsy requested?: No can line examiner notified?: No Organ bank notified?: No Advance directives: No Hospice patient?: No Visit Providers Provider Primary care physician: Devonte Ha MD Consults: 03/29/24 09:32 Consult to Cardiology Stat Comment: Consulting Provider: Viktor Soetlo Instructions: [place] Diagnosis PCOD Cause of : Cardiopulmonary arrest Discharge Plan Plan Patient Disposition: Disposition Comment: Prescriptions/Referrals Referrals: Devonte Ha MD [Primary Care Provider] - Patient/Caregiver Discharge Instructions Discharge Activity: other Print Language: Ukrainian Discharge Order Discharge Orders: Discharge (Routine); Ordered 03/30/24 Ordered By: Vj Godoy
== END 2024-03-30 16:38 | disposition expired | DRG 871 ==
LOC: SERX 12:17 → SERHOLD 13:02 → S2NX 03-30 01:18
PROVIDERS: Student in an Organized Health Care Education/Training Program; Admitting Provider Internal Medicine; Emergency Provider Emergency Medicine; PCP Family Medicine; Visit Provider Internal Medicine
DX: A41.9 Sepsis, unspecified organism (principal); I21.A1 Myocardial infarction type 2; J10.00 Influenza due to other identified influenza virus with unspecified type of pneumonia; J96.01 Acute respiratory failure with hypoxia; N39.0 Urinary tract infection, site not specified; I11.0 Hypertensive heart disease with heart failure; I50.9 Heart failure, unspecified; R56.9 Unspecified convulsions; N40.0 Benign prostatic hyperplasia without lower urinary tract symptoms; I48.91 Unspecified atrial fibrillation; E78.00 Pure hypercholesterolemia, unspecified; F20.9 Schizophrenia, unspecified; I95.9 Hypotension, unspecified; M81.0 Age-related osteoporosis without current pathological fracture; M43.6 Torticollis; I46.9 Cardiac arrest, cause unspecified; Z86.73 Personal history of transient ischemic attack (TIA), and cerebral infarction without residual deficits; Z74.01 Bed confinement status; Z66 Do not resuscitate; Z87.440 Personal history of urinary (tract) infections; Z51.5 Encounter for palliative care; Z79.01 Long term (current) use of anticoagulants; Z79.02 Long term (current) use of antithrombotics/antiplatelets
CPT/HCPCS: 36415; 36600; 71045; 71275; 80053; 80061; 81001; 82803; 83036; 83605; 83735; 83880; 84100; 84145; 84443; 84484; 85025; 85379; 85610; 85652; 85730; 86140; 87040; 87086; 87400; 87634; 87811; 93005; 94640; 96365; 96375; 99285; A4649; A9270; J0456; J0696; J1643; J1644; J1885; J1940; J2060; J2270; J2919; J7030; J7050; Q9967